=== PATIENT | female | born 1990 | race Caucasian/White ===

== ENCOUNTER → 2017-03-13 | Outpatient (CLI) | payer OTHER, BC ==
[~2017-03-13] MED LIST: BIRTH CONTROL; [UNRECOGNIZED DRUG - CODE] PO
--- NOTE | 2017-03-13 12:25 | DI ---
Indication: ITS.REASON: E04.1 NONTOXIC SINGLE THYROID NODULE PROCEDURE: US THYROID: Encounter: Initial Comparison: Thyroid ultrasound dated July 21, 2015 Technique: Grayscale and color Doppler sonographic imaging of the thyroid gland was performed. Findings: Right thyroid lobe shows a benign-appearing hypoechoic 5 x 5 x 3 mm consistent with a colloid nodule. There is also an isoechoic 6 x 8 x 6 mm nodule in the mid worsening of the lobe. These are both unchanged from the comparison study. Left thyroid lobe shows a hypoechoic 5 x 2 x 3 mm nodule with a thin rim which is wider than tall in the midportion. This is also stable from the prior study. There is a tiny 3 x 1 x 2 mm colloid nodule in the medial aspect of the left lobe superiorly which is also unchanged. Thyroid isthmus measures 0.2 cm in thickness. Symmetric flow to both thyroid lobes. Right lobe measures 5 x 1.6 x 1.5 cm in size. Left lobe measures 5 x 1.2 x 1.4 cm in size. Impression: Small subcentimeter bilateral benign thyroid nodules. Given the interval stability, these do not require continued imaging follow-up. .
== END ==
LOC: IMA 10:24
PROVIDERS: ATTEND Family Medicine
DX: E04.2 Nontoxic multinodular goiter (principal); E04.1 Nontoxic single thyroid nodule